=== PATIENT | male | born 1940 | race Caucasian/White ===

== ENCOUNTER 2018-05-13 12:42 | Emergency (ER) | payer OTHER ==
[~2018-05-13] VITALS: Ht 167.6 cm; Wt 80.3 kg
[~2018-05-13 12:42] MED LIST: ALLOPURINOL100 MG PO; LEVOTHYROXINE50 MCG PO; METOPROLOL SUCC25 MG PO; SIMVASTATIN40 MG PO
== END 2018-05-13 13:07 | disposition home or self-care (01) ==
LOC: FSED 12:42
DX: S61.211A Laceration without foreign body of left index finger without damage to nail, initial encounter (principal); W45.8XXA Other foreign body or object entering through skin, initial encounter; Y92.008 Other place in unspecified non-institutional (private) residence as the place of occurrence of the external cause
CPT/HCPCS: 99283

== ENCOUNTER → 2019-01-17 | Outpatient (CLI) | payer OTHER ==
[~2019-01-17] MED LIST changes: +REGADENOSON 0.4 MG/5 ML SYR IV ONE
--- NOTE | 2019-01-19 17:06 | Myoview Stress Test ---
DATE OF STUDY: 01/17/2019 07:52:00 Stress Test - Treadmill ONLY STUDY PERFORMED: Lexiscan stress test. INDICATION: Chest pain. DESCRIPTION OF PROCEDURE: After informed consent, the patient was brought to the stress lab. He was given 10.8 mCi of technetium-99m Myoview and myocardial perfusion SPECT images were obtained in the horizontal long axis and short axis and vertical long axis. Subsequently, the patient was given 0.4 mg of Lexiscan over 10 seconds intravenously and myocardial perfusion SPECT images were obtained in the horizontal long axis and short axis and vertical long axis. Gated images were also obtained. The patient tolerated the procedure without any complications. REPORT: Baseline EKG shows sinus rhythm at 68 beats per minute, normal axis, normal intervals, nonspecific ST-T changes. Parameters: 1. Resting heart rate is 71 beats per minute. 2. Maximum heart rate is 81 beats per minute. 3. Resting blood pressure 139/81 mmHg. 4. Maximum blood pressure 161/75 mmHg. Reason for termination, end point obtained. INTERPRETATION: 1. Negative chest pain. 2. Negative arrhythmias. 3. Blood pressure response consistent with Lexiscan. 4. No significant ST-T changes seen during Lexiscan infusion compared to baseline. 5. Analysis SPECT images revealed uniform radioisotope uptake any significant perfusion defects. CONCLUSIONS: 1. No evidence of significant ischemia or infarction on the study. 2. No wall motion abnormalities. 3. Overall ejection fraction is 65%. Jaden Coreas MD [facility]/MOD[facility] /[id number]
== END ==
LOC: NM 07:36
DX: I50.42 Chronic combined systolic (congestive) and diastolic (congestive) heart failure (principal)
CPT/HCPCS: 78452; 93017; A9502; J2785